=== PATIENT | male | born 1955 | race Caucasian/White ===

== ENCOUNTER 2016-09-09 19:35 | Emergency (ER) | payer MEDICARE ==
[2016-02-07 11:55] VITALS: BMI 37.5
[~2016-09-09 19:35] MED LIST: AMBIEN10 MG PO; ASPIRIN325 MG PO; ATARAX 25 MG TA25 MG PO; BUMEX 1 MG TAB1 MG PO; CELEXA20 MG PO; CLEOCIN HCL300 MG PO; COZAAR50 MG PO; FLOMAX0.4 MG PO; FLORANEX / LACT1 TAB PO; HYDROCODONE-APA1 TAB PO; JANUVIA100 MG PO; LANTUS SOL100 UNIT/1 SC; LEVOXYL50 MCG PO; LIPITOR80 MG PO; LYRICA100 MG PO; MUPIROCIN22 GM TOPICAL; NEO-BACIT-POLY3.5 G1 EACH EYE; OTEZLA PO; ZYLOPRIM300 MG PO; [UNRECOGNIZED DRUG - OTHER] PO
== END 2016-09-10 00:44 | disposition left against medical advice (07) ==
LOC: D.ER 19:35
DX: M79.605 Pain in left leg (principal)

== ENCOUNTER 2017-06-25 14:08 | Observation (INO) | payer MEDICARE ==
[~2017-06-25] VITALS: Ht 170.2 cm; Wt 91.5 kg
--- NOTE | ~2017-06-25 | CN ---
PATIENT NAME:KRZYSZTOF AGUILAR MEDICAL RECORD: [id number] : 57 LOCATION:. D.2119 ADMIT DATE: 06/25/17 ACCOUNT: [id number] CONSULTING PHYSICIAN: MIGUEL SMITH MD REFERRING PHYSICIAN: SLAVA BROWN DO DATE OF CONSULTATION: 06/26/2017 HISTORY OF PRESENT ILLNESS: Krzysztof Aguilar is a 61-year-old gentleman with a history of coronary artery disease, status post coronary bypass grafting, subsequently stenting by Dr. Eduardo and admitted with non-ST elevation myocardial infarctions, chest pressure, tightness with exertion. Unfortunately, he continues to smoke. He has a history of poorly controlled diabetes mellitus. We are asked to see him concerning his cardiovascular status. PAST MEDICAL HISTORY: Includes: 1. History of diabetes mellitus. 2. Hypertension. 3. Hyperlipidemia. 4. Anxiety. 5. Hypothyroidism, on replacement. ALLERGIES: BENICAR, METFORMIN. MEDICATIONS: Typically include insulin per scale, Januvia 100 mg p.o. every day, Synthroid 50 mcg every day, Bumex 1 mg p.o. every day, Lyrica 100 mg t.i.d., Celexa 20 every day, Atarax 25 q.i.d. p.r.n., losartan 25 every day, atorvastatin 80 every Day. SOCIAL HISTORY: . No set exercise program. Does not smoke least a pack a day. REVIEW OF SYSTEMS: The patient reports easy bruising but reports no swollen glands. The patient reports no fever, no night sweats, no significant weight gain, no significant weight loss. No significant exercise tolerance. The patient reports no dry eyes, no irritation, no vision change. Patient reports no difficulty hearing and no ear pain. Patient reports no frequent nose bleeds or nose and sinus problems. Patient reports on arm pain on exertion. No shortness of breath while lying down. No history of heart murmur. Patient reports no cough, no wheezing or coughing up blood. Patient reports no abdominal pain, no vomiting. Normal appetite. No diarrhea and not vomiting blood. No nausea and no constipation. Patient reports no incontinence. No difficulty urinating. No hematuria. No increased frequency. Patient reports no muscle aches. No weakness, no arthralgias, no back pain. No swelling of the extremities. Patient reports no abnormal mole, no jaundice, no rashes. Reports no loss of consciousness. No weakness and no numbness. No seizures, dizziness, or headaches. The patient reports no depression, no sleep disturbance, feeling safe in a relationship and no alcohol abuse. Patient reports on fatigue. Reports no runny nose or sinus pressure. No itching, no hives, and no frequent sneezing. PHYSICAL EXAMINATION: GENERAL: Somewhat unkempt gentleman, in no acute distress. VITAL SIGNS: Blood pressure 161/73, pulse 74 and regular. HEENT: Normocephalic, atraumatic. NECK: No JVD or bruit. CONSULT REPORT [id number] KRZYSZTOF AGUILAR HEART: Regular. LUNGS: Prolonged expiratory phase with inspiratory and expiratory wheezes. ABDOMEN: Soft, nontender. EXTREMITIES: Pulses decreased 1+. There is no edema. NEUROLOGIC: Grossly intact. DIAGNOSTIC DATA: ECG shows nonspecific ST-T changes inferolaterally, perhaps more pronounced from previous. Enzymes are negative, consistent with non-ST elevation myocardial infarction. PLAN: For angiography, intervention based on above. TRANSINT:[id number] Voice Confirmation ID: [id number] DOCUMENT ID: [id number] MIGUEL SMITH MD at 1155 CC: [id number] DICTATION DATE: 06/26/17833 TELECOMMUNICATIONS SUPPORT: 06/26/17 0937 ADM IN [place] [id number] [place] [id number]
--- NOTE | ~2017-06-25 | OP ---
PATIENT NAME: ZOYA AGUILAR MEDICAL RECORD: [id number] :57 LOCATION:D.M2 D.2119 ADMISSION DATE:06/25/17 SURGEON: MIGUEL SMITH MD DATE OF OPERATION: 06/26/2017 PROCEDURE: Left heart catheterization, selective coronary angiography, right femoral artery approach. CATHETERS USED: A 5-Welsh sheath, 5/4 left and right Crystal, 5/4 pig. The procedure was well tolerated. The patient returned to the freeman, sheath removed. ExoSeal device placed. FINDINGS: Left ventriculography in the 30-degree REYES view shows global hypokinesis, overall reduced LV function 30% to 35%. CORONARY ANATOMY: LEFT MAIN: Left main is free of disease. LAD: Fills for a short period of time, this totally occluded. The residual left main tapers to a 90% in-stent restenosis. This involves a large ramus intermediate branch and a small circumflex branch. RIGHT CORONARY ARTERY: Very tortuous, has placed 70% to 80% stenosis, 2 sequential areas. MANUEL to LAD is widely patent throughout its course. No other bypass was noticed via aortogram via previous angiography. DESCRIPTION OF PROCEDURE: A 5-Welsh sheath was changed for 6-Welsh sheath. Next, an EBU guiding catheter provided good guide catheter support. We were able to cross the restenotic stent with a 300 cm Whisper wire, which was then predilated with a 3.0 Hanover balloon. Next, a medicated 3.0 x 18 mm Resolute drug-eluting stent was inflated up to 14 atmospheres. This shows excellent resolution of a restenotic stent with good plumping of the distal right ramus intermediate. There is a continuous snowplowing, which was noted preprocedure into the circumflex. Despite multiple attempts, we were unable to pass a wire through the stent to the circumflex, which we managed medically. TRANSINT:[id number] Voice Confirmation ID: [id number] DOCUMENT ID: [id number] MIGUEL SMITH MD at 1155 CC: [id number] DICTATION DATE: 06/26/17 144 MUSIC VIDEO PRODUCER: 06/26/17 1515 ADM IN [place] [id number] [place] [address]
--- NOTE | ~2017-06-25 | HEMODYNAMI ---
PATIENT:ZOYA AGUILAR MEDICAL RECORD: [id number] : 57 [id number] ADMISSION DATE: 06/25/17 Generatedon:06/26/201714:44 Patient name: ZOYA AGUILAR Patient #: [id number] : 1955 Date of study: 06/26/2017 Page: Of Hemodynamic Procedure Report Patient Data Patient Demographics Procedure consent was obtained First Name: ZOYA Gender: Male Last Name: JEFF : 1955 [facility] Initial: J Age: 61 year(s) Patient #: [id number] Race: SSN: [id number] Additional ID: [id number] Contact details Address: [place] [address] State: [place] City: [place] Zip code: [address] Past Medical History Allergies Allergen Reaction Date Comments Reported Other allergy 01/22/2016 Metformin, Benicar Other allergy 02/07/2016 Benicar, Metformin Other allergy 06/26/2017 benicar, metformin Admission Admission Data Admission Date: 06/25/2017 Admission Time: 18:19 Room #: D.2119 Procedure Procedure Types Cath Procedure Diagnostic Procedure LHC LHC w/Coronaries w/Grafts Sedation Charges Moderate Sedation up to 30 minutes PCI Procedure Coronary Stent Coronary Stent Initial Procedure Description Procedure Date Procedure Date: 06/26/2017 Procedure Start Time: 14:12 Procedure End Time: 14:41 Procedure Staff Name Function Monster Sterling MD Performing Physician Jaimie Justin RT Monitor Jenifer Brown RT Monitor Gurvinder Barber RN Nurse Procedure Data Cath Procedure Fluoroscopy Diagnostic fluoroscopy Total fluoroscopy Time: 9.3 time: 9.3 min min Diagnostic fluoroscopy Total fluoroscopy dose: dose: 1334 mGy 1334 mGy Contrast Material Contrast Material Type Amount (ml) Isovue 300 136 Entry Location Entry Primary Successful Side Size Upsize Upsize Entry Closure Succes sful Closure Location (Fr) 1 (Fr) 2 (Fr) Remarks Device Remarks Femoral Right 5 Fr 6 Fr Exoseal artery Short Estimated blood loss: 10 ml Diagnostic catheters Device Type Used For End Catheter Placement MULTIPACK JL 4.0 5Fr Procedure catheter MULTIPACK 3DRC 5Fr Procedure catheter MULTIPACK Pigtail 5 Fr Procedure catheter Procedure Complications No complications Procedure Medications Medication Administration Route Dosage Oxygen NC 2 l/min Lidocaine 2% added to field 20 Heparin Flush Bag added to field 2 bags (1000units/500ml NS) 0.9% NaCl I.V. 100 ml/hr Versed I.V. 2 mg Fentanyl I.V. 50 mcg Versed I.V. 1 mg Fentanyl I.V. 50 mcg Heparin Bolus I.V. 4000 units Integrilin (Bolus I.V. 8.5 ml 2mg/ml) Versed I.V. 1 mg Plavix P.O. 600 mg Hemodynamics Rest Heart Rate: 75 (bpm) Pressure Samples Time Site Value (mmHg) Purpose Heart Use Rate(bpm) 14:19 LV 107/9,9 Snapshot 75 14:21 AO 115/65(90) Pullback 78 14:21 LV 111/10,12 Pullback 78 Gradients Valve Time Site 1 Site 2 Mean SEP/DFP Peak To Heart Use (mmHg) (sec/min) Peak Rate (mmHg) (bpm) Aortic 14:21 LV AO 0 7 0 78 111/10,12 115/65(90) Calculations Valve P-P Mean Valve Index Valve Source Name Gradient Area Flow (cm2) Aortic 0 0 0 0 Snapshots Pre Cath Intra NCS Post Cath Vital Signs Time Heart Resp SPO2 etCO2 NIBP (mmHg) Rhythm Pain Sedation Rate (ipm) (%) (mmHg) Status Level (bpm) 13:44:37 201 18 95 0 173/98(137) NSR 0 (11) 10(A) , No pain 13:48:57 91 15 95 0 137/85(117) NSR 0 (11) 10(A) , No pain 13:53:13 88 14 97 37.5 131/72(104) NSR 0 (11) 10(A) , No pain 13:57:23 86 12 97 37.5 125/76(94) NSR 0 (11) 10(A) , No pain 14:01:31 84 13 97 38.2 141/76(107) NSR 0 (11) 10(A) , No pain 14:05:43 88 13 96 42 138/87(105) NSR 0 (11) 10(A) , No pain 14:09:57 87 15 95 35.9 130/77(111) NSR 0 (11) 10(A) , No pain 14:14:05 87 16 95 11.2 129/81(96) NSR 0 (11) 9(A) , No pain 14:18:19 86 12 95 30 114/65(94) NSR 0 (11) 9(A) , No pain 14:22:27 84 15 96 21.7 123/71(93) NSR 0 (11) 9(A) , No pain 14:26:37 86 14 95 17.2 111/66(90) NSR 0 (11) 9(A) , No pain 14:30:42 82 12 95 27.7 126/69(94) NSR 0 (11) 9(A) , No pain 14:34:52 81 14 97 9 136/75(102) NSR 0 (11) 9(A) , No pain 14:39:02 81 12 97 40.4 148/85(114) NSR 0 (11) 10(A) , No pain Medications Time Medication Route Dose Verified Delivered Reason Notes Effectiveness by by 13:52:01 Oxygen NC 2 Monster Hollins used for l/min St Sarwat Barber RN procedure 13:52:09 Lidocaine 2% added 20ml Monster Hook for local to vial [facility] anesthetic field MD GONZALEZ 13:52:15 Heparin Flush added 2 Monster Monster used for Bag to bags [facility] procedure (1000units/500ml field MD GONZALEZ NS) 13:52:29 0.9% NaCl I.V. 100 Monster Hollins Per physician ml/hr St Sarwat Barber RN, MD 14:10:01 Fentanyl I.V. 50 Monster Adeie for sedation mcg St Sarwat Barber RN, MD 14:10:54 Versed I.V. 2 mg Monster Bookerie for sedation St Sarwat Barber RN, MD 14:15:10 Versed I.V. 1 mg Monster Bookerie for sedation St Sarwat Barber RN, MD 14:15:13 Fentanyl I.V. 50 Monster Bookerie for sedation mcg St Sarwat Barber RN, MD 14:21:30 Heparin Bolus I.V. 4000 Monster Bookerie for verifi ed units St Sarwat Barber RN anticoagulation with dr MD marti 14:22:54 Integrilin I.V. 8.5 Monster Hollins for wasted (Bolus 2mg/ml) ml St Sarwat Barber RN antiplatelet 1.5 ml therapy of vial 14:26:44 Versed I.V. 1 mg Monster Hollins for sedation St Sarwat Barber RN, MD 14:40:27 Plavix P.O. 600 Monster Hollins for sent mg St Sarwat Barber RN antiplatelet from med MD therapy floor due to vomiting Procedure Log Time Note 13:33:12 Jaimie Nhan RT(R) sent for patient. Start room use. 13:43:19 Time tracking: Regular hours 13:43:22 Plan of Care:Hemodynamics will remain stable., Cardiac rhythm will remain stable., Comfort level will be maintained., Respiratory function will remain adequate., Patient/ family verbilizes understanding of procedure., Procedure tolerated without complication., Recovers from procedure without complications.. 13:43:26 Patient received from PCU to CCL 2 Alert and oriented. Tansferred to table in Supine position. 13:43:26 Warm blankets applied, and neelam hugger turned on for patient comfort. 13:43:27 Correct patient and procedure confirmed by team. 13:43:28 Signed procedure consent form obtained from patient. 13:43:28 ECG and BP/O2 sat monitors applied to patient. 13:43:32 Vital chart was started 13:43:36 Rhythm: sinus rhythm 13:43:38 Full Disclosure recording started 13:44:13 H&P Date Dictated: 06/25/2017 Within 30 days and on chart.. 13:44:14 Pre-procedure instructions explained to patient. 13:44:14 Pre-op teaching completed and patient verbalized understanding. 13:44:16 Family in patients room. 13:44:18 Patient NPO since Midnight. 13:44:36 Patient allergic to Other allergybenicar, metformin 13:44:40 Is the patient allergic to Iodine/contrast media? No. 13:45:59 Was the patient premedicated? No 13:45:59 Is patient on blood thinner?Yes 13:46:14 Previous problem with sedation/anesthesia? No ? 13:46:15 Snore? Yes 13:46:16 Sleep apnea? No 13:46:17 Deviated septum? No 13:46:18 Opens mouth fully? Yes 13:46:18 Sticks out tongue? Yes 13:46:20 Airway obstruction? Yes COPD 13:46:33 Dentures? Yes In 13:46:49 Patient diabetic? Yes. 13:47:40 If diabetic: On Metformin? No 13:47:43 Pre procedure: right dorsailis pedis pulse 2+ Normal; easily identifiable; not easily obliterated 13:47:44 Patient pain scale 0/10 ?. 13:47:55 IV patent on arrival in left forearm with 0.9% NaCl at [facility]. 13:47:57 Lab results completed and on chart. 13:48:01 Right groin area was prepped with chlora-prep and draped in sterile fashion 13:48:02 Alarms reviewed by R. N. 13:48:02 Sharps counted by scrub and verified by R.N. 13:49:28 Physician paged 13:49:36 Use device set Femoral Dx 13:49:39 ACIST Syringe (79233) opened to sterile field. 13:49:40 Bag Decanter (2002S) opened to sterile field. 13:49:40 Medline Cath Pack ([id number]) opened to sterile field. 13:49:46 DIAGNOSTIC WIRE .035 260cm J wire (239849) opened to sterile field. 13:49:47 ACIST Hand Control (84331) opened to sterile field. 13:49:48 ACIST Manifold (09307) opened to sterile field. 13:49:49 DIAGNOSTIC Multipack 5Fr catheter set ([id number]) opened to sterile field. 13:49:50 Tegaderm 4 x 4 (1626W) opened to sterile field. 13:49:52 PERCUTANEOUS ENTRY 19GA needle opened to sterile field. 13:50:02 SHEATH 5Fr Prelude ([id number]) opened to sterile field. 13:52:01 Oxygen 2 l/min NC was administered by Gurvinder Barber RN; used for procedure; 13:52:09 Lidocaine 2% 20ml vial added to field was administered by Monster Sterling MD; for local anesthetic; 13:52:15 Heparin Flush Bag (1000units/500ml NS) 2 bags added to field was administered by Monster Sterling MD; used for procedure; 13:52:29 0.9% NaCl 100 ml/hr I.V. was administered by Buffie Barber RN; Per physician; 13:53:27 Zero performed for pressure channel P1 13:53:35 Zero performed for pressure channel P1 14:09:15 Physician arrived 14::16 --------ALL STOP TIME OUT------ 14::17 Final Timeout: patient, procedure, and site verified with staff and physician. All members of the team are in agreement. 14:09:33 Right groin site verified by team. 14:09:37 Physical assessment completed. ASA score P 2 - A patient with mild systemic disease as per Monster Sterling MD. 14:09:40 Sedation plan: IV Moderate Sedation Medication:Versed, Fentanyl 14:10:01 Fentanyl 50 mcg I.V. was administered by Gurvinder Barber RN; for sedation; 14:10:54 Versed 2 mg I.V. was administered by Gurvinder Barber RN; for sedation; 14:12:39 Procedure started. 14:12:44 Local anesthetic to right femoral artery with Lidocaine 2% by Monster Sterling MD.INITIAL ACCESS ONLY 14:13:52 A 5 Fr sheath was inserted into the Right Femoral artery 14:15:10 Versed 1 mg I.V. was administered by Gurvinder Barber RN; for sedation; 14:15:13 Fentanyl 50 mcg I.V. was administered by Gurvinder Barber RN; for sedation; 14:15:54 A MULTIPACK JL 4.0 5Fr catheter was advanced over the wire and used for Procedure. 14:16:50 LCA angiography performed. 14:16:55 Catheter removed. 14:17:04 A MULTIPACK 3DRC 5Fr catheter was advanced over the wire and used for Procedure. 14:18:01 RCA angiography performed. 14:18:13 MANUEL to LAD angiography performed. 14:18:48 A MULTIPACK Pigtail 5 Fr catheter was advanced over the wire and used for Procedure. 14:19:05 LV gram done using REYES 14:21:30 Heparin Bolus 4000 units I.V. was administered by Gurvinder Barber RN; for anticoagulation; verified with dr marti 14:21:42 EF : 35 % 14:22:08 WHISPER 300cm guide wire ([id number]) opened to sterile field. 14:22:09 SHEATH 6Fr Prelude ([id number]) opened to sterile field. 14:22:10 INFLATOR Merit Shirak (RP4801) opened to sterile field. 14:22:14 GUIDE 6FR EBU 3.5 catheter ([id number]) opened to sterile field. 14:22:23 Catheter removed. 14:22:38 Sheath upsized to a 6 Fr Short. 14:22:53 6 Fr EBU 3.5 guide catheter was inserted over the wire 14::54 Integrilin (Bolus 2mg/ml) 8.5 ml I.V. was administered by Gurvinder Barber RN; for antiplatelet therapy; wasted 1.5 ml of vial 14::58 Whisper wire advanced. 14::44 Versed 1 mg I.V. was administered by Gurvinder Barber RN; for sedation; 14::48 Wire advanced across lesion. 14:27:14 Inflate balloon Inflation number: 1 A EMERGE OTW 3.0 x 15 balloon ([id number]) was prepped and advanced across the Mid LAD, then inflated to 10 DUANE for 0:40 (min:sec). 14::42 Inflation number: 2 The EMERGE OTW 3.0 x 15 balloon ([id number]) was reinflated across the LMCA, to 10 DUANE for 0:17 (min:sec). 14:29:16 Balloon removed over the wire. 14:29:17 Wire removed. 14:31:51 Place stent Inflation Number: 1 A AVIVA OTW 3.0 x 18 stent ([id number]) was prepped and advanced across the LMCA. The stent was deployed at 14 DUANE for 0:17 (min:sec). 14:36:28 Timer 1 started at 2:34 PM, stopped at 2:36 PM, duration 00:01:44 sec. 14:36:41 Wire redirected to cx unsuccessful. 14:36:45 Wire removed. 14:36:46 Guide catheter removed. 14:36:54 EXOSEAL 6Fr (EX600) opened to sterile field. 14:38:17 Sheath removed intact; hemostasis achieved with Exoseal to the Right Femoral artery. 14:38:22 Procedure ended.(Physican Out) 14:38:44 Fluoroscopy time 09.30 minutes. 14:38:50 Flurop Dose total: 1334 14:38:50 Fluoroscopy dose: 1334 mGy 14:39:13 Contrast amount:Isovue 300 136ml. 14:39:15 Sharps counted by scrub and verified by R.N. 14:39:20 Insertion/operative site no bleeding no hematoma. 14:39:24 Post right femoral artery:stable 14:39:26 Post Procedure Pulses reassessed and unchanged 14:39:32 Post-procedure physical assessment completed. ASA score P 3 - A patient with severe systemic disease as per Monster Sterling MD. 14:39:38 Estimated blood loss: 10 ml 14:39:40 Post procedure instruction explained to patient.Patient verbalizes understanding. 14:40:27 Plavix 600 mg P.O. was administered by Gurvinder Barber RN; for antiplatelet therapy; sent from [facility] floor due to vomiting 14:40:27 Procedure type changed to Cath procedure, Diagnostic procedure, LHC, LHC w/Coronaries w/Grafts, Sedation Charges, Moderate Sedation up to 30 minutes, PCI procedure, Coronary Stent, Coronary Stent Initial 14:40:29 Procedure and supply charges have been captured, reviewed, submitted and are correct. 14:40:59 Procedure Complication : No complications 14:41:01 Vital chart was stopped 14:41:02 See physician's report for complete and final results. 14:41:05 Report given to [facility]. 14:41:10 Patient transfered to [facility] with Bed. 14:41:28 Procedure ended. 14:41:28 Full Disclosure recording stopped 14:41:32 End room use (Document Last) 14:41:38 ACC-PCI Only Patient was given prescriptions, or instructed by Monster Sterling MD to start/continue the following medications upon discharge: Plavix Intervention Summary Intervention Notes Time ActionType Lesion and Equipment Action# Pressure Duration Attributes Used 14:27:14 Inflate Mid LAD EMERGE OTW 1 10 00:40 balloon 3.0 x 15 balloon ([id number]) 14:27:42 Reinflate LMCA EMERGE OTW 2 10 00:17 balloon 3.0 x 15 balloon ([id number]) 14:31:51 Place stent LMCA AVIVA OTW 3.0 1 14 00:17 x 18 stent ([id number]) Device Usage Item Name Manufacture Quantity Catalog Number Hospital Part Current M inimal Lot# / Charge Number Stock Stock Serial# Code ACIST Syringe Acist 1 67154 296799 745481 116838 2 0 (61295) Medical Systems Inc Bag Decanter Microtek 1 2001S 862689 94193 119513 5 () Medical Inc. Medline Cath Cardinal [address] [id number] [address] [facility] WeHack.It ([id number]) DIAGNOSTIC St Eusebio 1 348388 042635 588353 214152 3 0 WIRE .035 260cm J wire (148877) ACIST Hand Acist 1 94521 316268 355657 461545 5 Control Medical (08738) Systems Inc ACIST Acist 1 94502 151493 445768 079152 5 Manifold Medical (91973) Systems Inc DIAGNOSTIC Cardinal 1 [id number] 092392 09208 958535 3 0 Multipack 5Fr Health catheter set (IH4299) Tegaderm 4 x 3M 1 1626W 893602 040056 650791 5 4 (1626W) PERCUTANEOUS Trainfox 1 [id number] 148694 142733 5 ENTRY 19GA needle SHEATH 5Fr Merit 1 [id number] 209800 810129 213770 5 Prelude Medical ([id number]) MULTIPACK JL Cardinal 1 174827 5 4.0 5Fr Health catheter MULTIPACK Cardinal 1 867327 5 3DRC 5Fr Health catheter MULTIPACK Cardinal 1 247688 5 Pigtail 5 Fr Health catheter WHISPER 300cm Callahan 1 [id number] 160931 323151 325578 5 guide wire Vascular ([id number]) SHEATH 6Fr Merit 1 [id number] 078805 972554 820261 5 Prelude Medical ([id number]) INFLATOR Merit 1 YV7622 731707 714883 299802 1 5 [facility] Medical BasixCompak (CR8225) GUIDE 6FR EBU Medtronic 1 [id number] 572074 80590 713888 3 3.5 catheter (GY3FMR42) EMERGE OTW [place] 1 [id number] 235940 036829 099607 5 [id number] 3.0 x 15 Scientific balloon ([id number]) AVIVA OTW 3.0 Medtronic 1 [id number] 439545 5496084 210277 5 [id number] x 18 stent ([id number]) EXOSEAL 6Fr Cardinal 1 EX600 697863 585102 624552 1 0 (EX600) Health Signature Audit Pablo Stage Time Signature Unsigned Intra-Procedure 06/26/2017 Jenifer Brown 2:43:58 PM RT(R) Signatures Monitor : Jaimie Justin RT Signature : Date : Time : Monitor : Jenifer Brown Signature : RT Date : Time : [facility] [address] [place] [address]
[2017-06-25 15:08] LABS: BASOPHILS 0.2 % (0-2); EOSINOPHILS 1.5 % (0-7); HEMATOCRIT 52.4 % (42.0-54.0); IMMATURE GRANULOCYTES 0.5 % (0-5); LYMPHOCYTES 17.1 % (15-50); MCH 32.7 pg (26.0-34.0); MCHC 36.3 g/dL (31.0-37.0); MCV 90.2 fL (80.0-100.0); MEAN PLATELET VOLUME 12.3 fL (7.4-10.4); NEUTROPHILS 75.7 % (40-80); PLATELET COUNT 218 10x3/uL (130-400); RBC 5.81 10x6/uL (4.20-6.10); RDW 12.8 % (11.5-14.5); WBC 9.6 10x3/uL (4.8-10.8)
[2017-06-25 15:48] LABS: ALBUMIN 4.3 g/dL (3.4-5.0); ALKALINE PHOSPHATASE 122 U/L (46-116); ALT (SGPT) 18 U/L (10-68); BILIRUBIN - TOTAL 1.27 mg/dL (0.2-1.3); CALC OSMOLALITY 282 mosm/kg (275-300); CALCIUM 9.4 mg/dL (8.5-10.1); CARBON DIOXIDE 32.8 mmol/L (21.0-32.0); CHLORIDE - SERUM 91 mmol/L (98-107); CKMB 4.5 U/L (0.0-3.6); CREATINE KINASE 73 UL (21-232); CREATININE - SERUM 1.4 mg/dL (0.6-1.3); POTASSIUM - SERUM 5.8 mmol/L (3.5-5.1); SODIUM 131 mmol/L (136-145); TROPONIN-I 0.048 ng/mL (0.000-0.060); UREA NITROGEN 14 mg/dL (7-18); eGFR NON AFRICAN AMERICAN 55 mL/min (90-120)
[2017-06-25 15:53] LABS: GLUCOSE 443 mg/dL (74-106)
[2017-06-25 18:03] LABS: TROPONIN-I 0.181 ng/mL (0.000-0.060)
[2017-06-25 19:00] VITALS: BP 167/72
[2017-06-26] VITALS (7 sets, daily range): BP systolic 98–173; BP diastolic 43–76; BMI 36.1
[2017-06-26 00:40] LABS: CKMB 14.3 U/L (0.0-3.6); CREATINE KINASE 157 UL (21-232); TROPONIN-I 1.336 ng/mL (0.000-0.060)
[2017-06-26 05:42] LABS: CALCIUM 8.9 mg/dL (8.5-10.1); CHLORIDE - SERUM 99 mmol/L (98-107); CKMB 27.3 U/L (0.0-3.6); CREATININE - SERUM 1.3 mg/dL (0.6-1.3); POTASSIUM - SERUM 4.4 mmol/L (3.5-5.1); SODIUM 137 mmol/L (136-145); UREA NITROGEN 15 mg/dL (7-18); eGFR NON AFRICAN AMERICAN 60 mL/min (90-120)
[2017-06-26 05:43] LABS: CALC OSMOLALITY 283 mosm/kg (275-300); CREATINE KINASE 256 UL (21-232); GLUCOSE 265 mg/dL (74-106); TROPONIN-I 4.076 ng/mL (0.000-0.060)
[2017-06-26 09:09] LABS: BASOPHILS 0.2 % (0-2); EOSINOPHILS 2.4 % (0-7); HEMATOCRIT 50.4 % (42.0-54.0); IMMATURE GRANULOCYTES 0.4 % (0-5); MCH 32.5 pg (26.0-34.0); MCHC 35.7 g/dL (31.0-37.0); MCV 91.1 fL (80.0-100.0); MEAN PLATELET VOLUME 12.4 fL (7.4-10.4); MONOCYTES 6.9 % (2-11); NEUTROPHILS 70.1 % (40-80); PLATELET COUNT 199 10x3/uL (130-400); RBC 5.53 10x6/uL (4.20-6.10); RDW 12.8 % (11.5-14.5)
[2017-06-27 03:18] LABS: BASOPHILS 0.2 % (0-2); EOSINOPHILS 4.5 % (0-7); HEMATOCRIT 51.3 % (42.0-54.0); IMMATURE GRANULOCYTES 0.3 % (0-5); LYMPHOCYTES 18.3 % (15-50); MCHC 35.1 g/dL (31.0-37.0); MCV 91.1 fL (80.0-100.0); MEAN PLATELET VOLUME 12.2 fL (7.4-10.4); NEUTROPHILS 68.7 % (40-80); PLATELET COUNT 192 10x3/uL (130-400); RBC 5.63 10x6/uL (4.20-6.10); RDW 12.9 % (11.5-14.5)
[2017-06-27 03:29] LABS: ANION GAP 11.3 mmol/L (8-16); CALCIUM 9.1 mg/dL (8.5-10.1); CARBON DIOXIDE 33.6 mmol/L (21.0-32.0); CREATININE - SERUM 1.4 mg/dL (0.6-1.3); POTASSIUM - SERUM 3.9 mmol/L (3.5-5.1)
[2017-06-27 04:00] VITALS: BP 99/40
[2017-06-27 07:08] VITALS: Ht 170.2 cm; Wt 91.5 kg
[2017-06-27 09:56] VITALS: BP 144/69
[2017-06-27 12:23] VITALS: BP 137/62
[2017-06-27] MEDS ORDERED: PLAVIX75 MG PO (13:15)
== END 2017-06-27 15:04 | disposition home or self-care (01) ==
LOC: D.ER 14:08 → D.M2 18:19 → OBSVTIME 18:19 → D.M2 06-27 15:04
PROVIDERS: Emergency Medicine; Family Medicine; Internal Medicine Interventional Cardiology
DX: I21.4 Non-ST elevation (NSTEMI) myocardial infarction (principal); I25.10 Atherosclerotic heart disease of native coronary artery without angina pectoris; Z95.1 Presence of aortocoronary bypass graft; Z95.5 Presence of coronary angioplasty implant and graft; I10 Essential (primary) hypertension; E11.9 Type 2 diabetes mellitus without complications; Z79.4 Long term (current) use of insulin; Z91.14 Patient's other noncompliance with medication regimen; E78.5 Hyperlipidemia, unspecified; F41.9 Anxiety disorder, unspecified; E03.9 Hypothyroidism, unspecified; F17.200 Nicotine dependence, unspecified, uncomplicated; L40.9 Psoriasis, unspecified; J44.9 Chronic obstructive pulmonary disease, unspecified; T82.855A Stenosis of coronary artery stent, initial encounter; Y83.8 Other surgical procedures as the cause of abnormal reaction of the patient, or of later complication, without mention of misadventure at the time of the procedure
CPT/HCPCS: 93459; C9606